=== PATIENT | female | born 1980 | race Caucasian/White ===

== ENCOUNTER 2016-10-22 15:15 | Outpatient (RCR) | payer OTHER ==
[~2016-10-22 15:15] MED LIST: CLINDAMYCIN PO; LORTAB 5/500 501 TAB PO; LORTAB 7.5/5001 TAB PO; MOTRIN800 MG PO; NO HOME MEDICATIONS; PERCODAN TABL1 UDTAB PO; PHENERGAN 25 TA25 MG PO; PHENERGAN25 MG RC; PREMARIN0.625 MG PO; PROTONIX20 MG PO; ROBAXIN 50500 MG/TAB PO; ULTRAM 50MG TAB50 MG PO; VIVLODEX10 MG PO
== END 2016-10-28 08:13 | disposition still patient (30) ==
LOC: WSPT 15:15
DX: M77.52 Other enthesopathy of left foot and ankle (principal)

== ENCOUNTER → 2016-12-31 | Outpatient (CLI) | payer OTHER | LOC: MHCPAIN 11:27 | DX: G89.29 Other chronic pain (principal); M47.27 Other spondylosis with radiculopathy, lumbosacral region; M51.16 Intervertebral disc disorders with radiculopathy, lumbar region; M48.06 Spinal stenosis, lumbar region | CPT/HCPCS: G0463 ==

== ENCOUNTER → 2017-01-22 | Outpatient (CLI) | payer OTHER | LOC: MHCPAIN 12:22 | DX: M47.27 Other spondylosis with radiculopathy, lumbosacral region (principal) | CPT/HCPCS: J1040; Q9967 ==

== ENCOUNTER → 2017-02-24 | Outpatient (CLI) | payer OTHER | LOC: MHCPAIN 11:03 | DX: G89.29 Other chronic pain (principal); M47.817 Spondylosis without myelopathy or radiculopathy, lumbosacral region; M54.16 Radiculopathy, lumbar region | CPT/HCPCS: G0463 ==

== ENCOUNTER 2017-03-05 14:20 | Outpatient (RCR) | payer OTHER | END 2017-04-15 07:58 | disposition home or self-care (01) | LOC: WSPT 14:20 | DX: M47.817 Spondylosis without myelopathy or radiculopathy, lumbosacral region (principal) ==

== ENCOUNTER 2018-08-01 20:03 | Emergency (ER) | payer BC ==
[~2018-08-01] VITALS: Ht 175.3 cm; Wt 147.7 kg
[2018-08-01 20:05] VITALS: TEMP 97.5
[2018-08-01] MEDS ORDERED: ESTRACE0.5 MG PO (20:10)
[2018-08-01 20:34] LABS: BASO % 0.3 % (0.0-2.0); EOS # 0.2 (0.0-0.7); EOS % 1.7 % (0-4.0); GRAN # 6.9 (1.4-6.5); GRAN % 79.3 % (42.2-75.2); HEMATOCRIT 39.3 % (37.0-47.0); HEMOGLOBIN 12.8 g/dl (12.5-16.0); LYMPH # 1.1 (1.2-3.4); LYMPH % 12.6 % (20.0-51.0); MEAN CELL VOLUME 86 fl (80.0-100.0); MEAN CORPUSCULAR HEMOGLOBIN 28 pg (27.0-31.0); MEAN CORPUSCULAR HGB CONC 33 g/dl (33.0-37.0); MEAN PLATELET VOLUME 8.6 fl (7.4-10.4); MONO # 0.5 (0.1-0.6); MONO % 5.9 % (1.7-9.3); PLATELET COUNT 218 K/mm3 (130-400); RED BLOOD COUNT 4.55 M/mm3 (4.10-5.30); REDCELL DISTRIBUTION WIDTH-CV 14.6 % (11.5-14.5)
[2018-08-01 20:45] LABS: ALBUMIN 3.7 gm/dL (3.5-5.0); BILIRUBIN,TOTAL 0.7 mg/dL (0.0-1.0); CREATININE, serum 0.81 mg/dL (0.52-1.25); POTASSIUM 3.8 mmol/L (3.4-5.0); TOTAL PROTEIN 7.1 gm/dL (6.4-8.2)
[2018-08-01] MEDS ORDERED: PHENERGAN 25 TA25 MG PO (21:43)
[2018-08-01 22:00] LABS: COLLECTION METHOD CATHETER
[2018-08-01 22:08] LABS: PH 7 (5-8); SQUAMOUS EPITHELIAL 0-2 /hpf; URINE APPEARANCE Clear; URINE BACTERIA None Seen /hpf; URINE BILIRUBIN Negative (NEGATIVE); URINE BLOOD Negative (NEGATIVE); URINE COLOR Yellow; URINE GLUCOSE Negative (NEGATIVE); URINE KETONE Negative (NEGATIVE); URINE LEUKOCYTE ESTERASE Negative (NEGATIVE); URINE NITRATE Negative (NEGATIVE); URINE PROTEIN(semi-quant) Negative (NEGATIVE); URINE RBC 0-2 /hpf
[2018-08-01 22:52] VITALS: BP 114/54; PULSE 80
== END 2018-08-01 22:52 | disposition home or self-care (01) ==
LOC: COL.ER 20:03
PROVIDERS: Emergency Medicine
DX: E86.9 Volume depletion, unspecified (principal); R11.10 Vomiting, unspecified; E28.2 Polycystic ovarian syndrome; Z90.89 Acquired absence of other organs; Z90.49 Acquired absence of other specified parts of digestive tract; Z90.710 Acquired absence of both cervix and uterus
CPT/HCPCS: J1630; J2550; J3010; J7030

== ENCOUNTER 2018-08-21 18:39 | Emergency (ER) | payer BC ==
[~2018-08-21] VITALS: Ht 177.8 cm; Wt 146.8 kg
[~2018-08-21 18:39] MED LIST changes: +ESTRACE0.5 MG PO
[2018-08-21 18:44] VITALS: BP 145/76; PULSE 104; TEMP 97.1
[2018-08-21 19:24] LABS: BASO # 0.1 (0.0-0.2); BASO % 0.6 % (0.0-2.0); EOS # 0.3 (0.0-0.7); EOS % 2.7 % (0-4.0); GRAN % 66.9 % (42.2-75.2); HEMATOCRIT 40.1 % (37.0-47.0); HEMOGLOBIN 13.3 g/dl (12.5-16.0); LYMPH # 2.5 (1.2-3.4); LYMPH % 23.4 % (20.0-51.0); MEAN CELL VOLUME 86 fl (80.0-100.0); MEAN CORPUSCULAR HEMOGLOBIN 29 pg (27.0-31.0); MEAN CORPUSCULAR HGB CONC 33 g/dl (33.0-37.0); MEAN PLATELET VOLUME 8.7 fl (7.4-10.4); MONO # 0.6 (0.1-0.6); MONO % 6.1 % (1.7-9.3); PLATELET COUNT 267 K/mm3 (130-400); RED BLOOD COUNT 4.66 M/mm3 (4.10-5.30); REDCELL DISTRIBUTION WIDTH-CV 14.9 % (11.5-14.5)
[2018-08-21 19:35] LABS: ALBUMIN 4.3 gm/dL (3.5-5.0); BILIRUBIN,TOTAL 0.5 mg/dL (0.0-1.0); C-REACTIVE PROTEIN 0.8 mg/dL (0.0-0.9); CREATININE, serum 1.06 mg/dL (0.52-1.25); POTASSIUM 3.7 mmol/L (3.4-5.0); TOTAL PROTEIN 7.8 gm/dL (6.4-8.2)
[2018-08-21 19:45] LABS: ERYTHROCYTE SEDIMENTATION RATE 10 mm/hr (0-20)
== END 2018-08-21 20:17 | disposition home or self-care (01) ==
LOC: COL.ER 18:39
PROVIDERS: Emergency Medicine
DX: M25.572 Pain in left ankle and joints of left foot (principal); K21.9 Gastro-esophageal reflux disease without esophagitis; Z98.1 Arthrodesis status

== ENCOUNTER 2019-01-26 08:00 | Outpatient (RCR) | payer BC ==
[2019-01-20 08:30] VITALS: BP 119/61; PULSE 79; TEMP 98.2
[2019-01-20 08:50] LABS: BASO % 0.4 % (0.0-2.0); EOS # 0.2 (0.0-0.7); EOS % 2.1 % (0-4.0); GRAN # 5.3 (1.4-6.5); GRAN % 68.1 % (42.2-75.2); HEMATOCRIT 38.7 % (37.0-47.0); HEMOGLOBIN 12.7 g/dl (12.5-16.0); LYMPH # 1.9 (1.2-3.4); LYMPH % 24.1 % (20.0-51.0); MEAN CELL VOLUME 87 fl (80.0-100.0); MEAN CORPUSCULAR HEMOGLOBIN 29 pg (27.0-31.0); MEAN CORPUSCULAR HGB CONC 33 g/dl (33.0-37.0); MONO # 0.4 (0.1-0.6); MONO % 4.9 % (1.7-9.3); PLATELET COUNT 216 K/mm3 (130-400); RED BLOOD COUNT 4.44 M/mm3 (4.10-5.30); REDCELL DISTRIBUTION WIDTH-CV 14.6 % (11.5-14.5)
[2019-01-20 09:02] LABS: BILIRUBIN,TOTAL 0.7 mg/dL (0.0-1.0); C-REACTIVE PROTEIN 1.3 mg/dL (0.0-0.9); CREATININE, serum 0.72 (0.52-1.25); POTASSIUM 3.4 mmol/L (3.4-5.0); TOTAL PROTEIN 7.6 gm/dL (6.4-8.2)
--- NOTE | 2019-01-20 09:45 | NUR ---
Pt manoj Daptomycin well. PIV wrapped with gauze and coban and left in for abx tomorrow.
[2019-01-20 09:46] LABS: ERYTHROCYTE SEDIMENTATION RATE 18 mm/hr (0-20)
[2019-01-21 08:10] VITALS: BP 117/59; PULSE 77; TEMP 98.9
[2019-01-22 08:16] VITALS: BP 114/64; PULSE 64; TEMP 97.8
--- NOTE | 2019-01-22 08:20 | NUR ---
Pt reports abd cramping yesterday. Pt states she is better today. Pt encouraged to eat yogurt daily or ask Doctor/phamacist about taking a probiotic to maintain GI health while on abx.
[2019-01-23 08:11] VITALS: BP 116/63; PULSE 66; TEMP 97.6
[2019-01-24 08:49] VITALS: BP 118/61; PULSE 70; TEMP 98
[2019-01-25 08:07] VITALS: BP 123/75; PULSE 66; TEMP 97.4
--- NOTE | 2019-01-25 15:00 | NUR ---
Came in and IV site light pink. States " It is really hurting." Discontinued INT intact.
[~2019-01-26] VITALS: Ht 177.8 cm; Wt 143.1 kg
[~2019-01-26 08:00] MED LIST changes: +CUBICIN 500MG500 MG IV; +PROBIOTIC FORMU1 CAP PO
--- NOTE | 2019-01-26 08:35 | NUR ---
Pt arrived via ambulatory.Per pt report she had an IV site yesterday that was painful.Redness and warmth observed on right FA.Encouraged pt to apply warm, moist heat and come back to [facility] if further issues or needs.New INT site in left hand,#24 x 1 attept.Flushed easily,Abx admisisterd,no complaints.INT removed after infusion.
[2019-01-26 08:38] VITALS: BP 126/77; PULSE 85; TEMP 97.8
[2019-01-26 09:06] LABS: BASO % 0.5 % (0.0-2.0); EOS # 0.1 (0.0-0.7); EOS % 1.5 % (0-4.0); GRAN # 5.8 (1.4-6.5); GRAN % 67.8 % (42.2-75.2); HEMATOCRIT 37.2 % (37.0-47.0); HEMOGLOBIN 12.6 g/dl (12.5-16.0); LYMPH % 23.7 % (20.0-51.0); MEAN CELL VOLUME 85 fl (80.0-100.0); MEAN CORPUSCULAR HEMOGLOBIN 29 pg (27.0-31.0); MEAN CORPUSCULAR HGB CONC 34 g/dl (33.0-37.0); MEAN PLATELET VOLUME 8.9 fl (7.4-10.4); MONO # 0.5 (0.1-0.6); MONO % 5.7 % (1.7-9.3); PLATELET COUNT 227 K/mm3 (130-400); RED BLOOD COUNT 4.38 M/mm3 (4.10-5.30); REDCELL DISTRIBUTION WIDTH-CV 14.7 % (11.5-14.5)
[2019-01-26 09:20] LABS: ERYTHROCYTE SEDIMENTATION RATE 14 mm/hr (0-20)
[2019-01-26 09:44] LABS: C-REACTIVE PROTEIN 1.2 mg/dL (0.0-0.9); CALCIUM 9.2 mg/dL (8.4-10.2); CREATININE, serum 0.7 (0.52-1.25); POTASSIUM 3.5 mmol/L (3.4-5.0)
== END 2019-01-26 09:48 | disposition home or self-care (01) ==
LOC: EUO 08:00
PROVIDERS: Orthopaedic Surgery
DX: L08.89 Other specified local infections of the skin and subcutaneous tissue (principal); Z98.890 Other specified postprocedural states
CPT/HCPCS: J0878

== ENCOUNTER 2019-10-28 05:41 | Emergency (ER) | payer OTHER, BC ==
[~2019-10-28] VITALS: Ht 170.2 cm; Wt 144.5 kg
[2019-10-28 05:42] VITALS: TEMP 97.5
[2019-10-28] MEDS ORDERED: VOLTAREN 75 DR75 MG PO (07:32)
[2019-10-28] MEDS ORDERED: FLEXERIL 1010 MG/TAB PO (07:32)
[2019-10-28 07:51] VITALS: BP 128/78; PULSE 72
== END 2019-10-28 07:55 | disposition home or self-care (01) ==
LOC: COL.ER 05:41
DX: S16.1XXA Strain of muscle, fascia and tendon at neck level, initial encounter (principal); S39.012A Strain of muscle, fascia and tendon of lower back, initial encounter; K21.9 Gastro-esophageal reflux disease without esophagitis; V43.52XA Car driver injured in collision with other type car in traffic accident, initial encounter; R40.2412 Glasgow coma scale score 13-15, at arrival to emergency department
CPT/HCPCS: J1885

== ENCOUNTER 2021-04-21 10:43 | Emergency (ER) | payer BC ==
[~2021-04-21] VITALS: Ht 177.8 cm; Wt 103.2 kg
[~2021-04-21 10:43] MED LIST changes: +FLEXERIL 1010 MG/TAB PO; +VOLTAREN 75 DR75 MG PO
[2021-04-21 11:14] VITALS: BP 128/79; PULSE 79; TEMP 98.3
== END 2021-04-21 12:10 | disposition left against medical advice (07) ==
LOC: COL.ER 10:43
DX: M54.5 Low back pain (principal); R11.2 Nausea with vomiting, unspecified

== ENCOUNTER 2023-01-31 19:30 | Emergency (ER) | payer BC ==
[~2023-01-31] VITALS: Ht 177.8 cm; Wt 157.3 kg
[2023-01-31 19:33] VITALS: TEMP 99
[2023-01-31] MEDS ORDERED: ZITHROMAX 250M250 MG PO ×3 (20:44→20:59)
[2023-01-31] MEDS ORDERED: PREDNISONE20 MG PO ×3 (20:44→20:59)
[2023-01-31 20:46] VITALS: BP 149/79; PULSE 87
== END 2023-01-31 21:02 | disposition home or self-care (01) ==
LOC: COL.ER 19:30
DX: J20.9 Acute bronchitis, unspecified (principal); E66.9 Obesity, unspecified; Z88.1 Allergy status to other antibiotic agents; Z28.310 Unvaccinated for COVID-19; Z68.42 Body mass index [BMI] 45.0-49.9, adult
CPT/HCPCS: J7512